=== PATIENT | female | born 1945 | race Caucasian/White ===

== ENCOUNTER 2019-07-13 12:20 | Emergency (ER) | payer MEDICARE ==
[~2019-07-13] VITALS: Ht 160 cm; Wt 49.9 kg
--- NOTE | 2019-07-13 14:08 | Emergency Room Report ---
History of Present Illness General Chief Complaint: Laceration Source: Patient Present Illness HPI 74-year-old female with history of osteoporosis here complaining of pain and a laceration that occurred this morning in the left forearm. Patient reports that he was walking her dog as her dog pulled the leash and patient landed on the left wrist. Patient went to a different type of appointment and had dressing applied to the affected site was told to come to the emergency room for imaging and laceration care. Patient is up-to-date with his tetanus shot. However rating the pain 10 out of 10 without radiation reports that she has had a wrist fracture the same area in the past. He denies tingling and numbness. Has not taken medication for symptom relief. Laceration on the left dorsal side of wrist skin appears a sandpaper Allergies: Coded Allergies: MORPHINE (Verified Allergy, Unknown, 07/13/19) Patient History Past Medical History: see triage record Past Surgical History: unable to obtain Pertinent Family History: none Last Menstrual Period: n/a Immunizations: UTD Reviewed Nursing Documentation: PMH: Agreed; PSxH: Agreed Nursing Documentation-PMH Past Medical History: No Stated History Review of Systems All Other Systems: negative except mentioned in HPI Physical Exam Vital Signs Date Time Temp Pulse Resp B/P (MAP) Pulse Ox O2 Delivery O2 Flow Rate FiO2 07/13/19 12:47 98.2 68 18 119/84 (96) 97 Room Air Sp02 EP Interpretation: reviewed, normal General Appearance: no apparent distress, alert, GCS 15, non-toxic Head: normocephalic, atraumatic Eyes: bilateral eye normal inspection, bilateral eye PERRL ENT: hearing grossly normal, normal pharynx, no angioedema, normal voice Neck: full range of motion, supple/symm/no masses Respiratory: chest non-tender, lungs clear, normal breath sounds, no rhonchi, speaking full sentences Cardiovascular #1: regular rate, rhythm, no edema, no murmur, normal capillary refill Cardiovascular #2: 2+ radial (R), 2+ radial (L) Gastrointestinal: non tender, soft, no mass Genitourinary: no CVA tenderness Musculoskeletal: back normal, digits/nails normal, tender - left ulnar head Neurologic: normal inspection, alert, oriented x3, responsive, director of tax services III-XII nml as tested Psychiatric: normal inspection, judgement/insight normal Skin: laceration - superficial left wrist Lymphatic: normal inspection, no adenopathy Procedures Splinting Splinting : Consent: Verbal Location: left wrist Pre-Made Type: velcro Splint: wrist Pre-Proc Neuro Vasc Exam: normal Patient Tolerated: Well Complications: None Laceration/Wound Repair Laceration/Wound Repair : Consent: Verbal Wound Location: upper extremity - left wrist Wound's Depth, Shape: superficial Wound Length (cm): 2 Wound Repaired With: Steri-strips, Dermabond Sterile Dressing Applied?: Yes Splint Applied?: Yes Sling Applied?: Yes Patient Tolerated: Well Complications: None Medical Decision Making PA Attestation All my diagnosis and treatment plans were reviewed ad discussed with my supervising physician Dr. Ramsey Diagnostic Impression: Primary Impression: Right distal ulnar fracture Additional Impression: Laceration of right wrist ER Course 74-year-old female with history of osteoporosis here complaining of pain and a laceration that occurred this morning in the left forearm. Patient reports that he was walking her dog as her dog pulled the leash and patient landed on the left wrist. Patient went to a different type of appointment and had dressing applied to the affected site was told to come to the emergency room for imaging and laceration care. Patient is up-to-date with his tetanus shot. However rating the pain 10 out of 10 without radiation reports that she has had a wrist fracture the same area in the past. He denies tingling and numbness. Has not taken medication for symptom relief. Laceration on the left dorsal side of wrist skin appears a sandpaper Ddx considered but are not limited to : Superficial laceration, deep laceration , tendon involvement with laceration, laceration with foreign body, wrist fx, sprain, contusion Vital signs: are WNL, pt. is afebrile H&PE are most consistent with:ulnar fx, laceration left wrist ORDERS: keflex , ibuuprofen ED INTERVENTIONS: lac repair, wound clean and dress, patient refused to do a plaster splint as wanted to only follow-up with food service specialist patient was given a premade removable Velcro splint DISCHARGE: At this time pt. is stable for d/c to home. Will provide printed patient care instructions, and any necessary prescriptions. Care plan and follow up instructions have been discussed with the patient prior to discharge. Patient to follow-up with primary care and food service specialist, if worsening symptoms return to the emergency room Other X-Ray Diagnostic Results Other X-Ray Diagnostic Results : X-Ray ordered: left forearm # of Views/Limited Vs Complete: 3 View Indication: Pain EP Interpretation: Yes VICKIE Xray: Interpretation reviewed, by supervising MD, and agrees with findings. Interpretation: no dislocation, no soft tissue swelling, other - fx distal ulna Impression: Other - fx distal ulna Electronically Signed by: Abdoul Britton PA-C Last Vital Signs Date Time Temp Pulse Resp B/P (MAP) Pulse Ox O2 Delivery O2 Flow Rate FiO2 07/13/19 12:47 98.2 68 18 119/84 (96) 97 Room Air Disposition: HOME, SELF-CARE Condition: Stable Scripts Ibuprofen (Ibu) 800 Mg Tablet 800 MG PO BID, #20 TAB Prov: Abdoul Nelson 07/13/19 Cephalexin* (KEFLEX*) 500 Mg Capsule 500 MG ORAL EVERY 6 HOURS for 7 Days, #28 CAP Prov: Abdoul Nelson 07/13/19 Referrals: NOT CHOSEN [facility]/,REFERRING (PCP) Patient Instructions: Laceration Care, Adult, Wrist Fracture With Rehab- [facility] Additional Instructions: Keep splint on, follow with the primary care physician to be sent to food service specialist. If worsening symptoms return to the emergency room Abdoul Nelson Jul 13, 2019 14:08
[2019-07-13] MEDS ORDERED: CEPHALEXIN500 MG ORAL (14:11)
[2019-07-13] MEDS ORDERED: IBU800 MG PO (14:11)
--- NOTE | 2019-07-13 14:18 | Diagnostic Imaging Report ---
Indications: Trauma, pain Technique: Two views of the left forearm Comparison: None Findings: There is a slightly impacted slightly angulated fracture of the distal radius. There is a slightly angulated, minimally displaced and possibly comminuted fracture of the distal ulnar neck. No radiopaque foreign body demonstrated. Impression: Positive for distal radial and ulnar fractures
--- NOTE | 2019-07-13 14:35 | NUR ---
ER DISCHARGE NOTE:wound was cleaned and dry dressing placed with splint and arm sling by field technician Patient is cleared to be discharged per ERMD, pt is aox4, on room air, with stable vital signs. pt was given dc and prescription instructions, pt was able to verbalize understanding, pt is able to ambulate with steady gait. pt took all belongings.
[2019-07-13 15:12] VITALS: BP 119/84
== END 2019-07-13 14:40 | disposition home or self-care (01) ==
LOC: EMR 13:20
DX: S51.812A Laceration without foreign body of left forearm, initial encounter (principal); S52.601A Unspecified fracture of lower end of right ulna, initial encounter for closed fracture; M81.0 Age-related osteoporosis without current pathological fracture; Z88.6 Allergy status to analgesic agent; W18.39XA Other fall on same level, initial encounter; Y93.K1 Activity, walking an animal; Y92.9 Unspecified place or not applicable
CPT/HCPCS: 29125; 99283